=== PATIENT | female | born 1960 | race Caucasian/White ===

== ENCOUNTER → 2021-03-16 | Outpatient (CLI) | payer OTHER ==
[~2021-03-16] MED LIST: ASPI-496 PO; BENA20TA61 PO; BUPR-173 PO; CHOL2000 PO; LOSA50TA14 PO; VITA1CAP PO
== END | disposition home or self-care (01) ==
LOC: CFH 14:28
PROVIDERS: ATTEND Internal Medicine
DX: M70.62 Trochanteric bursitis, left hip (principal); M16.12 Unilateral primary osteoarthritis, left hip; M48.061 Spinal stenosis, lumbar region without neurogenic claudication; M47.816 Spondylosis without myelopathy or radiculopathy, lumbar region; M51.36 Other intervertebral disc degeneration, lumbar region; M25.452 Effusion, left hip
CPT/HCPCS: 72148